=== PATIENT | male | born 2000 | race Caucasian/White ===

== ENCOUNTER 2020-12-21 05:45 | Emergency (ER) | payer OTHER ==
[2020-12-21 06:35] LABS: HEMOGLOBIN 16.4 gm/dl (14.0-17.5); RED BLOOD COUNT 5.35 M/UL (4.20-5.50); WHITE BLOOD COUNT 5.7 K/UL (4.5-11.0)
[2020-12-21 06:49] LABS: BUN/CREATININE RATIO 12 (0-10)
[2020-12-21] MEDS ORDERED: TYLOPHEN500 MG PO (08:42)
[2020-12-21] MEDS ORDERED: ZOFRAN ODT 4 MG4 MG SL (08:42)
[2020-12-21] MEDS ORDERED: PROTONIX40 MG PO (08:42)
== END 2020-12-21 10:05 | disposition home or self-care (01) ==
LOC: ER1 05:45
PROVIDERS: Physician Assistant
DX: U07.1 COVID-19 (principal); Z90.89 Acquired absence of other organs
CPT/HCPCS: 71250; 80053; 83605; 83690; 85025; 96374; 96375; 99284; J2405; J7030; Q9967; U0002